=== PATIENT | female | born 1940 | race Asian ===

== ENCOUNTER 2021-09-27 13:59 | Outpatient (CLI) | payer MEDICARE | END 2021-09-27 14:00 | disposition home or self-care (01) | LOC: ULT 13:59 | PROVIDERS: ATTEND Internal Medicine | DX: R06.02 Shortness of breath (principal); I08.3 Combined rheumatic disorders of mitral, aortic and tricuspid valves; Z95.0 Presence of cardiac pacemaker | CPT/HCPCS: 93306 ==